=== PATIENT | male | born 1935 | race Caucasian/White ===

== ENCOUNTER 2018-05-07 20:01 | Emergency (ER) | payer OTHER ==
[~2018-05-07] VITALS: Ht 167.6 cm; Wt 104.3 kg
[2018-05-07 20:05] VITALS: Ht 167.6 cm; Wt 104.3 kg
[2018-05-07 20:40] LABS: BASOPHIL % 0.5 % (0-2); PLATELET COUNT 225 x10^3mcL (130-400); RED CELL DISTRIBUTION WIDTH 13.7 % (11.5-14.5)
[2018-05-07 20:43] LABS: CALCIUM 8.5 mg/dL (8.5-10.1); CHLORIDE SERUM 103 mmol/L (98-107); CREATININE SERUM 1.4 mg/dL (0.7-1.3); GLUCOSE SERUM 214 mg/dL (74-106); POTASSIUM SERUM 4.6 mmol/L (3.5-5.1); SODIUM SERUM 138 mmol/L (136-145)
[2018-05-07 20:47] LABS: ALBUMIN 3.5 g/dL (3.4-5.0); ALKALINE PHOSPHATASE 37 U/L (46-116); ALT/SGPT 61 U/L (16-63); AST/SGOT 43 U/L (15-37); BILIRUBIN TOTAL 0.6 mg/dL (0.20-1.00); TOTAL PROTEIN, SERUM 7.3 g/dL (6.4-8.2)
[2018-05-07 21:26] LABS: UA SPECIFIC GRAVITY >=1.030 (1.005-1.035); microscopic required? YES; urine erythrocyte 3+ (NEGATIVE)
[2018-05-07 22:26] VITALS: BP 105/69
== END 2018-05-07 22:26 | disposition home or self-care (01) ==
LOC: ED 20:01
PROVIDERS: Emergency Medicine
DX: N36.8 Other specified disorders of urethra (principal); E11.22 Type 2 diabetes mellitus with diabetic chronic kidney disease; N18.9 Chronic kidney disease, unspecified; E11.65 Type 2 diabetes mellitus with hyperglycemia; Z91.010 Allergy to peanuts; Z88.2 Allergy status to sulfonamides
CPT/HCPCS: 36415

== ENCOUNTER 2019-03-21 10:15 | Emergency (ER) | payer OTHER ==
[~2019-03-21] VITALS: Ht 175.3 cm; Wt 100.7 kg
[2019-03-21 13:07] VITALS: BP 166/63
== END 2019-03-21 13:07 | disposition home or self-care (01) ==
LOC: ED 10:15
DX: S61.411A Laceration without foreign body of right hand, initial encounter (principal); S80.212A Abrasion, left knee, initial encounter; S80.211A Abrasion, right knee, initial encounter; S00.31XA Abrasion of nose, initial encounter; S00.01XA Abrasion of scalp, initial encounter; I48.91 Unspecified atrial fibrillation; Z88.2 Allergy status to sulfonamides; Z91.010 Allergy to peanuts; W01.198A Fall on same level from slipping, tripping and stumbling with subsequent striking against other object, initial encounter; Y93.89 Activity, other specified; Y92.481 Parking lot as the place of occurrence of the external cause; Y99.8 Other external cause status
CPT/HCPCS: 90715

== ENCOUNTER 2019-07-17 13:16 | Inpatient (IN) | payer OTHER ==
[~2019-07-17] VITALS: Ht 175.3 cm; Wt 102.5 kg
[2019-07-17 13:29] VITALS: Ht 175.3 cm; Wt 102.5 kg
[2019-07-17 14:29] LABS: BASOPHIL % 0.6 % (0-2); PLATELET COUNT 215 x10^3mcL (130-400); RED CELL DISTRIBUTION WIDTH 13.9 % (11.5-14.5)
[2019-07-17 14:33] LABS: CALCIUM 8.8 mg/dL (8.5-10.1); CARBON DIOXIDE 31.7 mmol/L (21-32); CHLORIDE SERUM 103 mmol/L (98-107); CREATININE SERUM 1.3 mg/dL (0.7-1.3); GLUCOSE SERUM 139 mg/dL (74-106); SODIUM SERUM 142 mmol/L (136-145)
[2019-07-17 14:40] LABS: ALBUMIN 3.7 g/dL (3.4-5.0); ALKALINE PHOSPHATASE 36 U/L (46-116); ALT/SGPT 30 U/L (16-63); AST/SGOT 19 U/L (15-37); BILIRUBIN TOTAL 0.7 mg/dL (0.20-1.00); TOTAL PROTEIN, SERUM 7.2 g/dL (6.4-8.2)
[2019-07-17 16:09] LABS: CHOLESTEROL/HDL RATIO 2.9; MAGNESIUM 2.1 mg/dL (1.8-2.4); PHOSPHOROUS 2.5 mg/dL (2.5-4.9)
[2019-07-17 16:18] LABS: T3 TOTAL 0.65 ng/mL
[2019-07-17 16:33] LABS: FREE T4 0.95 ng/dL (0.76-1.46); FREE THYROXINE INDEX 2.5 ug/dL (1.4-4.5); T4(THYROXINE) 6.3 ug/dL (4.7-13.3)
[2019-07-17 16:34] VITALS: BP 139/76
[2019-07-17 17:11] VITALS: BP 130/54
[2019-07-17] MEDS ORDERED: COUMADIN3 MG PO (19:53)
[2019-07-17] MEDS ORDERED: AMIODARONE200 MG PO (19:54)
[2019-07-17] MEDS ORDERED: PROSCAR5 MG PO (19:56)
[2019-07-17] MEDS ORDERED: SYNTHROID0.05 MG PO (19:58)
[2019-07-17] MEDS ORDERED: MAGNESIUM OXID400 MG PO (19:59)
[2019-07-17] MEDS ORDERED: BENADRYL ALLERG25 M1 PO (20:01)
[2019-07-17] MEDS ORDERED: HYDROCHLOROTHIA25 MG PO (20:03)
[2019-07-17] MEDS ORDERED: ZESTRIL2.5 MG PO (20:03)
[2019-07-17] MEDS ORDERED: ATORVASTATIN CA20 M1 PO (20:05)
[2019-07-17] MEDS ORDERED: FLO4 PO (20:06)
[2019-07-17 21:35] VITALS: BP 126/62
[2019-07-18 05:56] VITALS: BP 124/67
[2019-07-18 07:54] LABS: BASOPHIL % 0.2 % (0-2); PLATELET COUNT 218 x10^3mcL (130-400); RED CELL DISTRIBUTION WIDTH 14.5 % (11.5-14.5)
[2019-07-18 08:46] VITALS: BP 103/41
[2019-07-18 09:37] LABS: CALCIUM 8.9 mg/dL (8.5-10.1); CARBON DIOXIDE 28.3 mmol/L (21-32); CHLORIDE SERUM 103 mmol/L (98-107); CREATININE SERUM 1.3 mg/dL (0.7-1.3); GLUCOSE SERUM 226 mg/dL (74-106); MAGNESIUM 2.1 mg/dL (1.8-2.4); PHOSPHOROUS 3.4 mg/dL (2.5-4.9); POTASSIUM SERUM 4.7 mmol/L (3.5-5.1); SODIUM SERUM 140 mmol/L (136-145)
[2019-07-18 12:28] VITALS: BP 140/62
[2019-07-18 14:10] LABS: microscopic required? NO
[2019-07-18 14:34] LABS: UA SPECIFIC GRAVITY <=1.005 (1.005-1.035); urine erythrocyte NEGATIVE (NEGATIVE)
[2019-07-18 15:14] LABS: AMPHETAMINE QUAL UR NONE DETECTED (See below)
[2019-07-18 17:05] VITALS: BP 121/59
[2019-07-18 21:14] VITALS: BP 134/50
[2019-07-19 05:48] VITALS: BP 139/77
[2019-07-19 07:03] LABS: BASOPHIL % 0.3 % (0-2); PLATELET COUNT 227 x10^3mcL (130-400)
[2019-07-19 07:29] LABS: CALCIUM 9.2 mg/dL (8.5-10.1); CARBON DIOXIDE 26.2 mmol/L (21-32); CHLORIDE SERUM 104 mmol/L (98-107); CREATININE SERUM 1.3 mg/dL (0.7-1.3); GLUCOSE SERUM 223 mg/dL (74-106); POTASSIUM SERUM 4.6 mmol/L (3.5-5.1); SODIUM SERUM 141 mmol/L (136-145)
[2019-07-19] MEDS ORDERED: LEVAQUIN750 MG PO (07:54)
[2019-07-19 08:12] VITALS: BP 137/46
[2019-07-19 12:22] VITALS: BP 141/75
[2019-07-19 13:16] VITALS: BP 141/75
[2019-07-19] MEDS ORDERED: PREDNISONE50 MG PO (13:46)
== END 2019-07-19 14:17 | disposition home or self-care (01) | DRG 203 ==
LOC: ED 13:16 → MU 15:24 → DU 15:24 → MU 07-18 11:14
PROVIDERS: Emergency Medicine; ADMIT Internal Medicine
DX: J45.901 Unspecified asthma with (acute) exacerbation (principal); E11.9 Type 2 diabetes mellitus without complications; I48.0 Paroxysmal atrial fibrillation; N40.0 Benign prostatic hyperplasia without lower urinary tract symptoms; I34.0 Nonrheumatic mitral (valve) insufficiency; I10 Essential (primary) hypertension; E78.5 Hyperlipidemia, unspecified; Z68.33 Body mass index [BMI] 33.0-33.9, adult; Z87.891 Personal history of nicotine dependence; Z79.01 Long term (current) use of anticoagulants; Z79.84 Long term (current) use of oral hypoglycemic drugs
CPT/HCPCS: 82962; 83880; 84439; 87804; 94150; G0378; J1940; J1956; J2920; J7030; J7620; Q0092